=== PATIENT | male | born 1965 | race Caucasian/White ===

== ENCOUNTER 2018-05-26 06:48 | Observation (INO) | payer OTHER ==
[2018-05-26] MEDS ORDERED: NA CHLORIDE 0.9% 1,000 ML ONE (07:28)
[2018-05-26 07:34] LABS: Absolute Lymphocytes (CBC) 1.2 K/uL (0.7-4.9); Absolute Monocytes 0.6 K/uL (0.1-1.3); Absolute Neutrophil 4.2 K/uL (1.8-8.0); Basophils % 0.7 % (0-1.3); Eosinophils % 1.6 % (0-4.4); Hematocrit 44.1 % (39.6-49.0); Lymphocytes % 19.2 % (15.3-44.8); MPV 8.9 fL (7.6-11.3); Monocytes % 9.3 % (3.3-12.3); RBC Red Blood Cell Count 4.98 M/uL (4.33-5.43)
[2018-05-26] MEDS ORDERED: METOPROLOL TARTRATE 5 MG/5 ML INJ IV ONE ×3 (07:35→08:38)
[2018-05-26] MEDS ORDERED: LORazepam 2 MG/ML VIAL ONE (07:35)
[2018-05-26 07:40] LABS: Protime INR 1.11
[2018-05-26 08:01] LABS: ALT/SGPT 17 U/L (12-78); AST/SGOT 22 U/L (15-37); Albumin 3.9 g/dL (3.4-5.0); Alkaline Phosphatase 78 U/L (45-117); BUN Blood Urea Nitrogen 15 mg/dL (7-18); Bicarbonate 22 mmol/L (21-32); Bilirubin Direct 0.2 mg/dL (0-0.2); Bilirubin Total 0.5 mg/dL (0.2-1.0); Glucose Level 112 mg/dL (74-106); Magnesium 2.4 mg/dL (1.8-2.4); NT PRO-BNP 1958 pg/mL (<125); Potassium 4.1 mmol/L (3.5-5.1); Protein, Total 7.8 g/dL (6.4-8.2); Sodium Level 139 mmol/L (136-145); Troponin (Emerg Dept Use Only) < 0.02 ng/mL (0.0-0.045)
[2018-05-26] MEDS ORDERED: ENOXAPARIN 80 MG/0.8 ML SQ ONE (08:03)
--- NOTE | 2018-05-26 08:33 | ER ---
Nurse's Notes [facility] Department Name: Conrado Engel Age: 52 yrs Sex: Male : 1965 Arrival Date: 05/26/2018 Time: 06:49 Bed 5 Private MD: Diagnosis: Unspecified atrial fibrillation Presentation: 05/26 07:13 Presenting complaint: Patient states: Anxiety and SOB upon waking. Denies pain/nausea. hb Transition of care: patient was not received from another setting of care. Onset of symptoms was May 26, 2018. Risk Assessment: Do you want to hurt yourself or someone else? Patient reports no desire to harm self or others. Note HR 150s, Dr. Woodard notified and EKG ordered. Care prior to arrival: None. 07:13 Method Of Arrival: Ambulatory hb 07:13 Acuity: JACQUE 2 hb 07:15 Initial Sepsis Screen: Does the patient meet any 2 criteria? No. Patient's initial bp sepsis screen is negative. Does the patient have a suspected source of infection? No. Patient's initial sepsis screen is negative. Triage Assessment: 07:00 General: Appears in no apparent distress. comfortable, obese, Behavior is calm, bp cooperative, appropriate for age. Pain: Denies pain. Historical: - Allergies: 07:16 No Known Allergies; hb - Home Meds: 07:16 None [Active]; hb - PMHx: 07:16 Prolonged QT; hb - PSHx: 07:16 None; hb - Immunization history:: Adult Immunizations up to date. - Social history:: Smoking status: Patient/guardian denies using tobacco, Patient uses alcohol, occasionally. caffeine, Patient/guardian denies using street drugs, IV drugs, The patient lives with family. - Ebola Screening: : No symptoms or risks identified at this time. - Family history:: not pertinent. - Hospitalizations: : No recent hospitalization is reported. Screenin:16 Abuse screen: Denies threats or abuse. Denies injuries from another. Nutritional hb screening: No deficits noted. Tuberculosis screening: No symptoms or risk factors identified. Fall Risk None identified. Assessment: 07:15 General: Appears distressed, comfortable, obese, Behavior is cooperative, appropriate bp for age, anxious. Pain: Denies pain. Neuro: Level of Consciousness is awake, alert, obeys commands, Oriented to person, place, time, situation, Appropriate for age. Cardiovascular: Rhythm is atrial fibrillation with rapid ventricular response. Respiratory: Airway is patent Respiratory effort is even, unlabored, Respiratory pattern is regular, symmetrical. GI: No signs and/or symptoms were reported involving the gastrointestinal system. : No signs and/or symptoms were reported regarding the genitourinary system. EENT: No deficits noted. Derm: No deficits noted. Musculoskeletal: Circulation, motion, and sensation intact. Range of motion: intact in all extremities. 09:15 Reassessment: ADMIT IN PROCESS, VS STABLE ON MONITOR. bp Vital Signs: 07:15 BP 145 / 82; Pulse 153; Resp 16; Temp 97; Pulse Ox 98% on R/A; Pain 0/10; hb 09:22 BP 93 / 65; Pulse 102; Resp 20; Temp 98.6; Pulse Ox 96% ; lt1 ED Course: 06:49 Patient arrived in ED. ag3 07:09 Kang Ortega, RN is Primary Nurse. bp 07:15 Triage completed. hb 07:15 Arm band placed on. hb 07:15 Patient has correct armband on for positive identification. Placed in gown. Bed in low bp position. Call light in reach. Side rails up X2. Adult w/ patient. 07:16 Scooter Moreira MD is Attending Physician. ma2 07:20 Initial lab(s) drawn, by me. Inserted saline lock: 20 gauge in right antecubital area, jb1 using aseptic technique. Blood collected. 07:39 X-ray completed. Portable x-ray completed in exam room. Patient tolerated procedure kp1 well. 07:40 XRAY Chest (1 view) In Process Unspecified. EDMS 08:29 Stephen Dawkins DO is Hospitalizing Provider. ma2 10:25 No provider procedures requiring assistance completed. Patient admitted, IV remains in jl7 place. intact, No redness/swelling at site. Administered Medications: 07:21 Drug: NS 0.9% 1000 ml Route: IV; Rate: 1 bolus; Site: right antecubital; hb 09:50 Follow up: IV Status: Completed infusion; IV Intake: 1000ml bp 07:30 Drug: Ativan 1 mg Route: IVP; Site: right antecubital; bp 09:49 Follow up: Response: No adverse reaction; Marked relief of symptoms bp 07:30 Drug: Metoprolol 5 mg Route: IVP; Site: right antecubital; bp 07:40 Drug: Metoprolol 5 mg Route: IVP; Site: right antecubital; bp 09:50 Follow up: Response: Marked relief of symptoms bp 07:40 Drug: Lovenox 80 mg Route: Sub-Q; Site: right lower abdomen; bp 09:49 Follow up: Response: No adverse reaction bp Intake: 09:50 IV: 1000ml; Total: 1000ml. bp Outcome: 08:32 Decision to Hospitalize by Provider. ma2 10:25 Admitted to Tele accompanied by tech, via wheelchair, room 422, with chart, Report jl7 called to AMNA Willams 10:25 Condition: stable 10:25 Discharge instructions given to patient, family, Instructed on the need for admit, Demonstrated understanding of instructions. 10:38 Patient left the ED. bp Signatures: Dispatcher [employer] EDCalos Martinez jb1 Ela Stephens RN RN hb Leal, Jahala, RN RN jl7 Lexi Gonzalez kp1 Kang Ortega RN RN bp Alzahri, Mohammad, MD MD ma2 Kathy Weiss3 Hilaria Zarco [facility]
--- NOTE | 2018-05-26 08:33 | EDPHYS ---
Physician Documentation [facility] Name: Conrado Engel Age: 52 yrs Sex: Male : 1965 Arrival Date: 05/26/2018 Time: 06:49 Bed 5 Private MD: ED Physician Scooter Moreira HPI: 05/26 07:17 This 52 yrs old Male presents to ER via Ambulatory with complaints of Nervous.ma2 07:17 The patient presents with a history of heart racing. Onset: The symptoms/episode ma2 began/occurred suddenly, 3 hour(s) ago. Associated signs and symptoms: Pertinent positives: anxiety, Pertinent negatives: chest pain, cough, fever, lightheadedness, nausea, SOB, syncope, near-syncope, vertigo, vomiting. Severity of symptoms: At their worst the symptoms were mild in the emergency department the symptoms are unchanged. The patient has not experienced similar symptoms in the past. Historical: - Allergies: 07:16 No Known Allergies; hb - Home Meds: 07:16 None [Active]; hb - PMHx: 07:16 Prolonged QT; hb - PSHx: 07:16 None; hb - Immunization history:: Adult Immunizations up to date. - Social history:: Smoking status: Patient/guardian denies using tobacco, Patient uses alcohol, occasionally. caffeine, Patient/guardian denies using street drugs, IV drugs, The patient lives with family. - Ebola Screening: : No symptoms or risks identified at this time. - Family history:: not pertinent. - Hospitalizations: : No recent hospitalization is reported. ROS: 07:17 Constitutional: Negative for fever, chills, and weight loss. ma2 07:17 Cardiovascular: Positive for palpitations, Negative for chest pain, edema, orthopnea, paroxysmal nocturnal dyspnea, acute changes. 07:17 Respiratory: Positive for palpitation, Negative for cough, dyspnea on exertion, hemoptysis, orthopnea, pleurisy, shortness of breath, sputum production, wheezing, acute changes. 07:17 All other systems are negative. Exam: 07:17 Constitutional: This is a well developed, well nourished patient who is awake, alert, ma2 and in no acute distress. Chest/axilla: Normal chest wall appearance and motion. Nontender with no deformity. No lesions are appreciated. Respiratory: Lungs have equal breath sounds bilaterally, clear to auscultation and percussion. No rales, rhonchi or wheezes noted. No increased work of breathing, no retractions or nasal flaring. Abdomen/GI: Soft, non-tender, with normal bowel sounds. No distension or tympany. No guarding or rebound. No evidence of tenderness throughout. MS/ Extremity: Pulses equal, no cyanosis. Neurovascular intact. Full, normal range of motion. Neuro: Awake and alert, GCS 15, oriented to person, place, time, and situation. Cranial nerves II-XII grossly intact. Motor strength 5/5 in all extremities. Sensory grossly intact. Cerebellar exam normal. Normal gait. 07:17 Cardiovascular: Rate: tachycardic, Rhythm: irregularly irregular, Pulses: Edema: is not appreciated, JVD: is not appreciated. Vital Signs: 07:15 BP 145 / 82; Pulse 153; Resp 16; Temp 97; Pulse Ox 98% on R/A; Pain 0/10; hb 09:22 BP 93 / 65; Pulse 102; Resp 20; Temp 98.6; Pulse Ox 96% ; lt1 MDM: 07:16 Patient medically screened. ma2 07:17 Differential diagnosis: arrythmia, dehydration, stress disorder. ma2 08:28 Data reviewed: vital signs, nurses notes. Data interpreted: HR improved to 110 w metop ma2 . Counseling: I had a detailed discussion with the patient and/or guardian regarding: the historical points, exam findings, and any diagnostic results supporting the discharge/admit diagnosis, the presence of at least one elevated blood pressure reading (>120/80) during this emergency department visit. Response to treatment: the patient's symptoms have markedly improved after treatment. ED course: will admit to obs for a-fib w rvr . 08:52 ED course: discussed with dr. wu . ct2 05/26 07:17 Order name: Basic Metabolic Panel; Complete Time: 08:08 [facility] 05/26 07:17 Order name: CBC with Diff; Complete Time: 08:08 [facility] 05/26 07:17 Order name: LFT's; Complete Time: 08:08 [facility] 05/26 07:17 Order name: Magnesium; Complete Time: 08:08 [facility] 05/26 07:17 Order name: NT PRO-BNP; Complete Time: 08:08 [facility] 05/26 07:17 Order name: PT-INR; Complete Time: 08:08 2 05/26 07:17 Order name: Troponin (emerg Dept Use Only); Complete Time: 08:08 2 05/26 07:17 Order name: XRAY Chest (1 view) ct2 05/26 07:17 Order name: EKG; Complete Time: 07:18 ma2 05/26 07:51 Order name: EKG Electrocardiogram [facility] 05/26 07:17 Order name: Cardiac monitoring; Complete Time: 07:21 ma2 05/26 07:17 Order name: EKG - Nurse/Tech; Complete Time: 07:21 ma2 05/26 07:17 Order name: IV Saline Lock; Complete Time: 07:21 05/26 07:17 Order name: Labs collected and sent; Complete Time: 09:23 2 05/26 07:17 Order name: O2 Per Protocol; Complete Time: 07:21 2 05/26 07:17 Order name: O2 Sat Monitoring; Complete Time: 07:21 2 05/26 07:17 Order name: Oxygen Per Protocol; Complete Time: 07:21 ma2 Administered Medications: 07:21 Drug: NS 0.9% 1000 ml Route: IV; Rate: 1 bolus; Site: right antecubital; hb 09:50 Follow up: IV Status: Completed infusion; IV Intake: 1000ml bp 07:30 Drug: Ativan 1 mg Route: IVP; Site: right antecubital; bp 09:49 Follow up: Response: No adverse reaction; Marked relief of symptoms bp 07:30 Drug: Metoprolol 5 mg Route: IVP; Site: right antecubital; bp 07:40 Drug: Metoprolol 5 mg Route: IVP; Site: right antecubital; bp 09:50 Follow up: Response: Marked relief of symptoms bp 07:40 Drug: Lovenox 80 mg Route: Sub-Q; Site: right lower abdomen; bp 09:49 Follow up: Response: No adverse reaction bp Disposition: 05/26/18 08:32 Hospitalization ordered by Stephen Wu for Observation. Preliminary diagnosis is Unspecified atrial fibrillation. - Bed requested for Telemetry/MedSurg (observation). - Status is Observation. bp - Condition is Stable. - Problem is new. - Symptoms have improved. UTI on Admission? No Signatures: Dispatcher [employer] EDMS Allie Smith Ela Pandya, RN RN Kang Adame, AMNA RN bp Scooter Moreira MD MD ma2 Corrections: (The following items were deleted from the chart) 09:41 08:32 Hospitalization Ordered by Stephen Wu DO for Observation. Preliminary bd diagnosis is Unspecified atrial fibrillation. Bed requested for Telemetry/MedSurg (observation). Status is Observation. Condition is Stable. Problem is new. Symptoms have improved. UTI on Admission? No. ma2 10:38 09:41 05/26/2018 08:32 Hospitalization Ordered by [facility] for Observation. bp Preliminary diagnosis is Unspecified atrial fibrillation. Bed requested for Telemetry/MedSurg (observation). Status is Observation. Condition is Stable. Problem is new. Symptoms have improved. UTI on Admission? No. bd
--- NOTE | 2018-05-26 08:58 | EKG ---
Test Date: 2018-05-26 Test Time: 07:18:39 Agriculture Mechanic: HB MEASUREMENT RESULTS: Intervals: Rate: 139 HI: QRSD: 90 QT: 290 QTc: 441 [place]: P: HI: QRS: 10 T: 194 INTERPRETIVE STATEMENTS: Atrial fibrillation with rapid ventricular response Moderate voltage criteria for LVH, may be normal variant ST & T wave abnormality, consider inferior ischemia ST & T wave abnormality, consider anterolateral ischemia Abnormal ECG No previous ECG available for comparison Electronically Signed On 05-26-18 08:57:44 CERTIFIED RECREATIONAL THERAPIST by Wilton Montilla
--- NOTE | 2018-05-26 08:58 | EKG ---
Test Date: 2018-05-26 Test Time: 07:19:37 Health Promoter: HB MEASUREMENT RESULTS: Intervals: Rate: 144 MT: QRSD: 90 QT: 248 QTc: 383 [place]: P: MT: QRS: 12 T: 205 INTERPRETIVE STATEMENTS: Atrial fibrillation with rapid ventricular response Moderate voltage criteria for LVH, may be normal variant ST & T wave abnormality, consider inferior ischemia ST & T wave abnormality, consider anterolateral ischemia Abnormal ECG Compared to ECG 05/26/2018 07:18:39 No significant changes Electronically Signed On 05-26-18 08:57:42 FIBERGLASS BONDING MACHINE TENDER by Wilton Montilla
--- NOTE | 2018-05-26 09:38 | P.HP ---
Certification for Inpatient Patient admitted to: Observation Patient will require the following post-hospital care: None Practitioner: I am a practitioner with admitting privileges, knowledge of patient current condition, hospital course, and medical plan of care. Services: Services provided to patient in accordance with Admission requirements found in Title 42 Section 412.3 of the Code of Federal Regulations Patient History Date of Service: 05/26/18 Primary Care Provider: Dr. Georgina Alexander; Cardiology-Dr. Montilla Reason for admission: Palpitations History of Present Illness: 52-year-old male presented to the emergency room with palpitations. Patient reported palpitations late last night. He has not had any palpitations before. He denied any significant chest pain or shortness of breath. Mild edema noted to the lower extremities. Patient reports no prior medical problems. Patient came to the ER for further evaluation. Patient seen in the emergency room. Patient found to be in new onset atrial fibrillation with RVR. Rate was around 150. Patient was given 2 doses of IV metoprolol with improvement of heart rate. On lab white count 6.0, hemoglobin 15. Troponin less than 0.02 with a BNP of 1900. Sodium 139, potassium 4.1, BUN of 15, creatinine 1.2 with GFR 63. Glucose 112. Patient stable at this time. Patient was admitted for further evaluation and treatment. In the ER patient stable. Patient reports family history of heart disease. He denies any major medical problems at this time. It is been over 20 years since he last saw cardiology. Home medications list reviewed: Yes - Past Medical/Surgical History Diabetic: No -: Obesity -: Tonsillectomy Psychosocial/ Personal History: Patient is . He has 3 children. 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 - Family History Mother -: Heart disease - Social History Smoking Status: Never smoker Alcohol use: Yes CD- Drugs: No Caffeine use: Yes Place of Residence: Home Review of Systems General: As per HPI Eyes: Unremarkable ENT: Unremarkable Respiratory: Unremarkable Cardiovascular: Palpitations, As per HPI Gastrointestinal: Unremarkable Genitourinary: Unremarkable Musculoskeletal: Pedal edema, As per HPI Integumentary: Unremarkable Neurological: Unremarkable Lymphatics: Unremarkable Physical Examination - Physical Exam General: Alert, In no apparent distress, Oriented x3, Cooperative HEENT: Atraumatic, Normocephalic, PERRLA, Mucous membr. moist/pink Neck: Supple, No Thyromegaly Respiratory: Clear to auscultation bilaterally, Normal air movement Cardiovascular: Irregular heart rate/rhythm (Atrial fibrillation, rate improved) Gastrointestinal: Normal bowel sounds, Soft and benign, Non-distended, No tenderness, No masses, No rebound, No guarding Musculoskeletal: No erythema, No tenderness, No warmth Integumentary: No erythema, No warmth, No cyanosis, Tenderness/swelling (Mild pitting edema to the lower extremities bilateral) Neurological: Normal speech, Normal strength at 5/5 x4 extr, Normal tone, Normal affect - Studies Laboratory Data (last 24 hrs) 05/26/18 07:20: PT 13.1 H, INR 1.11 05/26/18 07:20: WBC 6.0, Hgb 15.1, Hct 44.1, Plt Count 290 05/26/18 07:20: Sodium 139, Potassium 4.1, BUN 15, Creatinine 1.21, Glucose 112 H, Magnesium 2.4, Total Bilirubin 0.5, AST 22, ALT 17, Alkaline Phosphatase 78 Assessment and Plan - Plan Impression: New onset atrial fibrillation with RVR with possible underlying systolic congestive heart failure Obesity Plan: New onset atrial fibrillation with RVR with possible underlying systolic congestive heart failure: Patient will be admitted and monitored on telemetry. Will monitor cardiac enzymes. Will obtain echocardiogram to evaluate for possible underlying congestive heart failure. Cardiology consulted to further evaluate. Patient given IV metoprolol in the emergency room. Rate improved. Will continue with metoprolol orally. Will start Lovenox at 1 milligram/ kilograms subcu twice daily. Awaiting for further recommendations from cardiology. Patient may require cardiac intervention. Will check tsh and free T4. Patient likely has underlying obstructive sleep apnea. This can be evaluated as an outpatient. Obesity: Will evaluate BMI. Will address lifestyle modification education. Discharge Plan: Home Plan to discharge in: 48 Hours - Advance Directives Does patient have a Living Will: No Does patient have a Durable POA for Healthcare: No - Code Status/Comfort Care Code Status Assessed: Yes (Patient full code.) Time Spent Managing Pts Care (In Minutes): 55
--- NOTE | 2018-05-26 09:59 | RAD REPORT ---
EXAM DESCRIPTION: Dede Single View05/26/2018 7:41 am CLINICAL HISTORY: Shortness of breath COMPARISON: none FINDINGS: The lungs appear clear of acute infiltrate. The heart is borderline enlarged. Mild promin ence of mediastinum. IMPRESSION: Mild prominence of mediastinum may be secondary to tortuous brachiocephalic vessels are mediastinal fat. Lymphadenopathy can also have this appearance but probably is less likely. PA and l ateral chest series in 1 month is recommended for re-evaluation
[2018-05-26 10:53] VITALS: BMI 33.5
[2018-05-26] MEDS ORDERED: ONDANSETRON 4 MG/2 ML VIAL IV PRN (10:54)
[2018-05-26] MEDS ORDERED: ACETAMINOPHEN 500 MG TAB PO PRN (10:54)
[2018-05-26 12:32] LABS: Thyroid Stimulating Hormone 3.93 uIU/mL (0.360-3.740)
[2018-05-26 13:41] LABS: CKMB Creatine Kinase MB 6.5 ng/mL (0.3-3.6); Troponin I 0.02 ng/mL (0.0-0.045)
--- NOTE | 2018-05-26 15:52 | ECHO ---
HEIGHT: 5 ft 11 in WEIGHT: 240 lb 0 oz DATE OF STUDY: 05/26/[address]: Stephen Dawkins DO 2-DIMENSIONAL: YES M.MODE: YES DOPPLER: YES COLOR FLOW: YES TDS: NO PORTABLE: NO DEFINITY: NO BUBBLE STUDY: NO DIAGNOSIS: NEW ONSET ATRIAL FIBRILLATION CARDIAC HISTORY: CATHERIZATION: NO SURGERY: NO PROSTHETIC VALVE: NO PACEMAKER: NO MEASUREMENTS (cm) DIASTOLIC (NORMALS) SYSTOLIC (NORMALS) IVSd 1.5 (0.6-1.2) LA Diam 5.7 (1.9-4.0) LVEF 55% LVIDd 4.2 (3.5-5.7) LVIDs 3.0 (2.0-3.5) %FS 28% LVPWd 1.5 (0.6-1.2) Ao Diam 3.0 (2.0-3.7) 2 DIMENSIONAL ASSESSMENT: RIGHT ATRIUM: NORMAL LEFT ATRIUM: DILATED RIGHT VENTRICLE: NORMAL LEFT VENTRICLE: LEFT VENTRICULAR HYPERTROPHY TRICUSPID VALVE: NORMAL MITRAL VALVE: NORMAL PULMONIC VALVE: NORMAL AORTIC VALVE: NORMAL PERICARDIAL EFFUSION: NONE AORTIC ROOT: NORMAL LEFT VENTRICULAR WALL MOTION: NORMAL DOPPLER/COLOR FLOW: NORMAL COMMENTS: NORMAL LEFT VENTRICULAR FUNCTION. ATRIAL FIBRILLATION. LEFT ATRIAL ENLARGEMENT. NO THROMBUS. LEFT VENTRICULAR HYPERTROPHY. TECHNOLOGIST: MAGED TAM RDCS
[2018-05-26 17:27] LABS: Urine Appearance CLEAR; Urine Bilirubin NEGATIVE (NEG); Urine Blood NEGATIVE (NEG); Urine Color YELLOW; Urine Glucose NEGATIVE (NEG); Urine Protein NEGATIVE (NEG); Urine Specific Gravity 1.015 (1.005-1.030); Urine Urobilinogen 0.2 mg/dL (0.2-1.0)
[2018-05-26 17:28] LABS: Urine Microscopic Reflex NO UMIC
[2018-05-26] MEDS: METOPROLOL TAR 25 MG TAB PO SCH (17:37)
--- NOTE | 2018-05-26 19:25 | CON ---
Date of Consultation: 05/26/2018 Reason For Admission: New-onset atrial fibrillation. History Of Present Illness: Mr. Engel is a 52-year-old white male, who apparently had an episode of syncope when he was 16 years of age and he was told then he has a long QT syndrome and also told t anne-marie that he had left ventricular hypertrophy. Has not had any problems obviously since then. He is 52, so 36 years later, he developed atrial fibrillation. He had some chest pain with the atrial fibr illation and he felt more anxious with it. Denies nausea, vomiting, diaphoresis, PND, orthopnea, ped al edema, or syncope. Past Medical History: Negative. Allergies: NONE. Review of Systems: Negative. Social History: Negative for tobacco, alcohol, or drugs. Medications: None. Physical Examination: Vital Signs: He was still in atrial fibrillation rate of about 90, afebrile. HEENT: Negative. Neck: Supple with no bruit. Chest: Clear. Cardiac: Revealed atrial fibrillation. No murmurs, gallops, or rubs. Abdomen: Benign. Extremities: Revealed no clubbing, cyanosis, or edema. Diagnostic Data: EKG showed atrial fibrillation. BNP was 1958. Rest of it was normal. Impression And Plan: New-onset atrial fibrillation. The patient received metoprolol. He is on Love nox. His rate is better controlled. We will continue the metoprolol. He presents as a rather chall enging case because he has a history of long QT. He will not be eligible for Betapace or amiodarone. Certainly beta-blockers and anticoagulants and maybe a cardioversion in the near future may be may be the way to go. We can certainly consider other antiarrhythmics as well or even ablation. We do n ot have an EKG that shows his long QT just Nor[place], but based on history. An echocardiogram is pendi ng. We will see how he does by tomorrow. KELLE/BHAVIN Voice ID: [id number] Report ID: [id number]
[2018-05-26] MEDS: Enoxaparin 120 MG/0.8 ML SYR SQ SCH (21:10)
[2018-05-26 22:34] LABS: CKMB Creatine Kinase MB 5.8 ng/mL (0.3-3.6); Troponin I 0.02 ng/mL (0.0-0.045)
[2018-05-27] MEDS: METOPROLOL TAR 25 MG TAB PO SCH (05:52)
[2018-05-27 06:10] LABS: Absolute Lymphocytes (CBC) 1.7 K/uL (0.7-4.9); Absolute Monocytes 0.7 K/uL (0.1-1.3); Absolute Neutrophil 3.9 K/uL (1.8-8.0); Basophils % 0.8 % (0-1.3); Eosinophils % 1.6 % (0-4.4); Hematocrit 42.6 % (39.6-49.0); Lymphocytes % 26.1 % (15.3-44.8); MPV 8.4 fL (7.6-11.3); Monocytes % 10.6 % (3.3-12.3); RBC Red Blood Cell Count 4.75 M/uL (4.33-5.43)
[2018-05-27] MEDS ORDERED: PANTOPRAZOLE 40MG TABLET PO SCH (06:30)
[2018-05-27 06:33] LABS: Magnesium 2.4 mg/dL (1.8-2.4); Potassium 4.5 mmol/L (3.5-5.1)
[2018-05-27 08:53] VITALS: BP 104/65; TEMP 97
--- NOTE | 2018-05-27 08:56 | RAD REPORT ---
EXAM DESCRIPTION: RAD - Chest Pa And Lat (2 Views) - 05/27/2018 6:34 am CLINICAL HISTORY: follow up SOB Chest pain. COMPARISON: Chest Single View dated 05/26/2018 FINDINGS: The lungs are clear. The heart is normal in size. No displaced fractures. IMPRESSION: No acute or concerning finding suspected.
[2018-05-27] MEDS ORDERED: FUROSEMIDE 20 MG TABLET PO SCH (09:00)
[2018-05-27] MEDS: Enoxaparin 120 MG/0.8 ML SYR SQ SCH (09:15)
--- NOTE | 2018-05-27 10:24 | P.DS ---
Admission Date: 05/26/18 Discharge Date: 05/27/18 Primary Care Provider: Dr. Georgina Alexander; Cardiology-Dr. Montilla Disposition: ROUTINE DISCHARGE Discharge Condition: GOOD Reason for Admission: Palpitations Consultations: Cardiology-Dr. Montilla Procedures: ECHO: EF 55% LEFT VENTRICULAR WALL MOTION: NORMAL DOPPLER/COLOR FLOW: NORMAL COMMENTS: NORMAL LEFT VENTRICULAR FUNCTION. ATRIAL FIBRILLATION. LEFT ATRIAL ENLARGEMENT. NO THROMBUS. LEFT VENTRICULAR HYPERTROPHY. CXR: COMPARISON: Chest Single View dated 05/26/2018 FINDINGS: The lungs are clear. The heart is normal in size. No displaced fractures. IMPRESSION: No acute or concerning finding suspected. Medical Problem List: New onset atrial fibrillation with RVR with history of prolonged QT syndrome with echo showing left ventricular hypertrophy and left atrial enlargement Hyperlipidemia Obesity, BMI 33.5 Brief History of Present Illness: 52-year-old male presented to the emergency room with palpitations. Patient reported palpitations late last night. He has not had any palpitations before. He denied any significant chest pain or shortness of breath. Mild edema noted to the lower extremities. Patient reports no prior medical problems. Patient came to the ER for further evaluation. Patient seen in the emergency room. Patient found to be in new onset atrial fibrillation with RVR. Rate was around 150. Patient was given 2 doses of IV metoprolol with improvement of heart rate. On lab white count 6.0, hemoglobin 15. Troponin less than 0.02 with a BNP of 1900. Sodium 139, potassium 4.1, BUN of 15, creatinine 1.2 with GFR 63. Glucose 112. Patient stable at this time. Patient was admitted for further evaluation and treatment. In the ER patient stable. Patient reports family history of heart disease. He denies any major medical problems at this time. Patient with history of prolonged QT. It is been over 20 years since he last saw cardiology. Hospital Course: Patient presented with palpitations secondary to new onset atrial fibrillation with RVR. Patient was admitted for treatment. Patient given beta-tulio therapy. Heart rate improved. Patient still in atrial fibrillation. Patient seen and evaluated by Cardiology. Patient with history of prolonged QT syndrome. Patient not a candidate for amiodarone or sotalol. Patient remained stable at discharge. Echocardiogram shows ejection fraction of 55% with normal left ventricular function, left atrial enlargement and left ventricular hypertrophy. At discharge cardiology recommends to continue with metoprolol 12.5 mg 1 pill twice daily for rate control. Patient may need to hold medication if systolic blood pressure less than 100. Patient to follow up with cardiology within 1 week. Cardiology will consider other options if the patient remains in atrial fibrillation. Options include medication-Rythmol or cardioversion. This to be further addressed as an outpatient. At discharge cardiology also recommends chronic anti coagulation therapy due to the atrial fibrillation. At discharge he will continue with Eliquis 5 mg twice daily. Education on Eliquis and atrial fibrillation will be provided. Patient found to have hyperlipidemia with noted elevated LDL. At discharge he will continue with Lipitor 40 mg daily. Patient with obesity, BMI 33.5. Lifestyle modification education will be provided. Vital Signs/Physical Exam: Temp Pulse Resp BP Pulse Ox 97.0 F 69 18 104/65 96 05/27/18 08:00 05/27/18 08:00 05/27/18 08:00 05/27/18 08:00 05/27/18 08:00 General: Alert, In no apparent distress, Oriented x3, Cooperative HEENT: Atraumatic, Mucous membr. moist/pink Neck: Supple Respiratory: Clear to auscultation bilaterally, Normal air movement Cardiovascular: Irregular heart rate/rhythm (Atrial fibrillation, rate controlled) Gastrointestinal: Normal bowel sounds, Soft and benign, Non-distended, No ascites, No tenderness, No masses, No rebound, No guarding Musculoskeletal: No erythema, No tenderness, No warmth Integumentary: No tenderness/swelling, No erythema, No warmth, No cyanosis Neurological: Normal speech, Normal strength at 5/5 x4 extr, Normal tone, Normal affect Laboratory Data at Discharge: WBC 6.4 K/uL (4.3-10.9) 05/27/18 05:50 Hgb 14.5 g/dL (13.6-17.9) 05/27/18 05:50 Hct 42.6 % (39.6-49.0) 05/27/18 05:50 Plt Count 276 K/uL (152-406) 05/27/18 05:50 PT 13.1 SECONDS (9.5-12.5) H 05/26/18 07:20 INR 1.11 05/26/18 07:20 Sodium 141 mmol/L (136-145) 05/27/18 05:50 Potassium 4.5 mmol/L (3.5-5.1) 05/27/18 05:50 BUN 17 mg/dL (7-18) 05/27/18 05:50 Creatinine 1.32 mg/dL (0.55-1.3) H 05/27/18 05:50 Glucose 104 mg/dL (74-106) 05/27/18 05:50 Magnesium 2.4 mg/dL (1.8-2.4) 05/27/18 05:50 Total Bilirubin 0.5 mg/dL (0.2-1.0) 05/26/18 07:20 AST 22 U/L (15-37) 05/26/18 07:20 ALT 17 U/L (12-78) 05/26/18 07:20 Alkaline Phosphatase 78 U/L (45-117) 05/26/18 07:20 Troponin I 0.02 ng/mL (0.0-0.045) 05/26/18 21:53 Triglycerides 105 mg/dL (<150) 05/27/18 05:50 Cholesterol 209 mg/dL (<200) H 05/27/18 05:50 HDL Cholesterol 38 mg/dL (40-60) L 05/27/18 05:50 Cholesterol/HDL Ratio 5.50 05/27/18 05:50 Home Medications: Apixaban [Eliquis] 5 mg PO BID #60 tablet 05/27/18 Atorvastatin Calcium [Lipitor] 40 mg PO DAILY #30 tablet 05/27/18 Metoprolol Tartrate [Lopressor*] 12.5 mg PO BID #60 tab 05/27/18 New Medications: Apixaban [Eliquis] 5 mg PO BID #60 tablet Atorvastatin Calcium [Lipitor] 40 mg PO DAILY #30 tablet Metoprolol Tartrate [Lopressor*] 12.5 mg PO BID #60 tab Patient Discharge Instructions: 1. Patient will need to follow up with his PCP and cardiology within 1 week to follow up this hospitalization. 2. Patient presented with palpitations secondary to new onset atrial fibrillation with RVR. Patient was admitted for treatment. Patient given beta-tulio therapy. Heart rate improved, but Patient still in atrial fibrillation. Patient seen and evaluated by Cardiology. Patient with history of prolonged QT syndrome. Patient not a candidate for amiodarone or sotalol. Patient remained stable at discharge. Echocardiogram shows ejection fraction of 55% with normal left ventricular function, left atrial enlargement and left ventricular hypertrophy. At discharge cardiology recommends to continue with metoprolol 12.5 mg 1 pill twice daily for rate control. Patient may need to hold medication if systolic blood pressure less than 100. Patient to follow up with cardiology within 1 week. Cardiology will consider other options if the patient remains in atrial fibrillation. Options include medication-Rythmol or cardioversion. This to be further addressed as an outpatient. At discharge cardiology also recommends chronic anti coagulation therapy due to the atrial fibrillation. At discharge he will continue with Eliquis 5 mg twice daily. Education on Eliquis and atrial fibrillation will be provided. 3. Patient found to have hyperlipidemia with noted elevated LDL. At discharge he will continue with Lipitor 40 mg daily. 4. Patient with obesity, BMI 33.5. Lifestyle modification education will be provided. Diet: AHA Activity: Ad vincenzo Time spent managing pt's care (in minutes): 55
[2018-05-27 13:38] VITALS: O2SAT 96
[2018-05-27] MEDS ORDERED: METOPROLOL TAR 25 MG TAB PO SCH (18:00)
[2018-05-27] MEDS ORDERED: APIXABAN 5 MG TABLET PO SCH (21:00)
== END 2018-05-27 11:17 | disposition home or self-care (01) ==
LOC: ER 06:48 → ERHOLD 09:28 → 4TH 10:25
PROVIDERS: ADMIT Family Medicine; ATTEND Family Medicine
DX: I48.91 Unspecified atrial fibrillation (principal); E78.5 Hyperlipidemia, unspecified; E66.9 Obesity, unspecified; Z68.33 Body mass index [BMI] 33.0-33.9, adult; I51.7 Cardiomegaly
CPT/HCPCS: 36415; 71045; 71046; 80048; 80061; 80076; 81003; 82550; 82553; 83735; 83880; 84439; 84443; 84484; 85025; 85610; 93005; 93306; 96361; 96372; 96374; 96375; 99285; G0378; J1650; J7030

== ENCOUNTER 2018-08-01 08:55 | Observation (INO) | payer BC, OTHER ==
[2018-08-01] MEDS ORDERED: SOTALOL HCL 80 MG TAB PO ONE (09:47)
[2018-08-01 10:37] LABS: Absolute Monocytes 0.7 K/uL (0.1-1.3); Absolute Neutrophil 5.8 K/uL (1.8-8.0); Basophils % 0.7 % (0-1.3); Eosinophils % 0.6 % (0-4.4); Hematocrit 42.6 % (39.6-49.0); MPV 8.6 fL (7.6-11.3); Monocytes % 9.2 % (3.3-12.3); RBC Red Blood Cell Count 4.67 M/uL (4.33-5.43)
[2018-08-01 10:48] LABS: Potassium 4.8 mmol/L (3.5-5.1)
[2018-08-01] MEDS ORDERED: NA CHLORIDE 0.9% 500 ML ONE (13:54)
[2018-08-01] MEDS ORDERED: MIDAZOLAM HCL 5 MG/5 ML INJ ONE ×2 (14:07→14:11)
[2018-08-01] MEDS: SOTALOL HCL 80 MG TAB PO SCH (17:31)
[2018-08-01 18:16] VITALS: BMI 33.5
[2018-08-01] MEDS: APIXABAN 5 MG TABLET PO SCH (20:23)
[2018-08-01] MEDS ORDERED: ZOLPIDEM TARTRATE 5 MG TABLET PO ONE (21:35)
--- NOTE | 2018-08-01 21:38 | CON ---
Chief Complaint: Heart racing. History Of Present Illness: Mr. Engel has been having atrial fibrillation and atrial flutter off and on since April. He was placed on Betapace, was in sinus rhythm in mid May of this year, remained on Betapace, and then returned today. He is in atrial flutter. He has remained on metoprolol 100 mg a day and Eliquis since April. He has no history of atrial fibrillation before that. He had syncope when he was 16. The physician told him he had long QT syndrome, but his QT is not long. He does not have any history consistent with long QT syndrome. The patient uses no tobacco. His only medications have been metoprolol and Eliquis. Physical Examination: General: He appears to be his stated age of 52. Alert, oriented, pleasant, obese. Neck: No carotid bruit. Lungs: Clear. Heart: Regular rate and rhythm, going about 148. Abdomen: Soft. Extremities: Trace edema. Distal pulses normal. Social History: Uses no tobacco. Rare alcohol. No illegal drugs. Diagnostic Studies: His EKG shows atrial flutter, 2:1 conduction. Impression: The patient should be tried on sotalol. We will watch QT interval carefully. He will be in the hospital. So, if he does get a prolonged QT syndrome and torsades, we will be ready to deal with that. We should do a cardioversion this afternoon. YUDITH Voice ID: [id number] Report ID: [id number] ALEKSANDR
--- NOTE | 2018-08-01 23:35 | OP ---
Surgeon: Al Quintanilla MD Procedure: Direct current cardioversion. Indication: Atrial flutter, heart rate 140. Procedure In Detail: The patient was fasting. He had been on Eliquis since April 2018, 5 mg twic e a day, therapeutic dose. Brought to the cardiac catheterization lab in a fasting, sedated with Rizwan sed, titrated to an adequate level of sedation; 10 mg was used. A single shock was delivered through anterior-posterior paddles, synchronized the QRS complex 70 joules. This resulted in sinus rhythm. Complications from the procedure were none. He will stay overnight to be monitored for the first 3 doses of Betapace and be discharged home tomorrow if there is no proarrhythmia. DARWIN/BHAVIN Voice ID: [id number] Report ID: [id number]
[2018-08-02 01:58] VITALS: TEMP 97.1
[2018-08-02 04:28] LABS: Albumin 3.5 g/dL (3.4-5.0); Bilirubin Direct 0.2 mg/dL (0-0.2); Bilirubin Total 0.7 mg/dL (0.2-1.0); Protein, Total 6.3 g/dL (6.4-8.2)
[2018-08-02] MEDS: SOTALOL HCL 80 MG TAB PO SCH (05:06)
[2018-08-02] MEDS: APIXABAN 5 MG TABLET PO SCH (08:25)
[2018-08-02 09:14] VITALS: O2SAT 96
[2018-08-02 09:40] VITALS: BP 132/87
--- NOTE | 2018-08-02 22:31 | DS ---
Date of Discharge: 08/02/2018 Reason For Admission: Atrial flutter. Discharge Diagnoses: 1.Atrial flutter, status post cardioversion by Dr. Quintanilla yesterday, converted to normal rhythm. Th e patient now is on Betapace 80 mg b.i.d. and Xarelto. 2.Hypertension. 3.Left ventricular hypertrophy. 4.Prolonged QT. 5.Possible sleep apnea. Procedures: While he was in the hospital include direct current cardioversion on 08/01/2018 from atr ial flutter to normal rhythm. Discharge Instructions: Discharge instruction was for him to see me in 8 days at 8:30 in the morning in the office. To continue his medications at home except for instead of the metoprolol, he will be taking Betapace 80 mg b.i.d. Continue his other medications including Xarelto. Discharge diet inst ruction was for low-salt diet. Discharge physical activities were normal physical activities. Hospital Course: Mr. Engel is a 52-year-old white male with recent-onset atrial fibrillation that is paroxysmal, had plan to do a cardioversion approximately a month ago, but he converted to sinus r hythm on medications of metoprolol and Xarelto. However, he came to the office on 08/01/2018, not fe eling well, bloated, fatigued, short of breath, was found to be in atrial flutter with 2:1 AV block a t a rate of 150. He was sent from my office for a direct admission. Dr. Quintanilla performed a cardiove rsion on him. He went in normal rhythm. We switched him from metoprolol to Betapace 80 mg b.i.d. H wild has already received 3 dosages of Betapace, maintains sinus rhythm, asymptomatic. He was ready to go home, and he will be discharged today. Lipid profile, which was done, showed much improved lipid numbers. The patient requested a sleep study, which I will do as an outpatient. Liver function enzy mes were pending. Past Medical History: As stated above. Allergies: NONE. Review of Systems: Negative. Social History: Negative. Family History: Negative. Physical Examination: Vital Signs: Stable today. He was in sinus rhythm. HEENT: Negative. Neck: Supple with no bruit. Chest: Clear. Cardiac: Reveals regular rhythm and rate. No murmurs, gallops, or rubs. Abdomen: Benign. Extremities: Revealed no clubbing, cyanosis, or edema. Diagnostic Data: All within normal limits except for the EKG showing nonspecific ST-T wave changes. Final Diagnoses: 1.Atrial flutter, status post cardioversion. Continue Betapace and Xarelto. 2.Hypertension, well controlled. 3.Prolonged QT, resolved. 4.Left ventricular hypertrophy. 5.Possible sleep apnea. KELLE/MODL Voice ID: [id number] Report ID: [id number]
--- NOTE | 2018-08-03 06:07 | EKG ---
Test Date: 2018-08-02 Test Time: 08:03:33 [employer]: TANVIR MEASUREMENT RESULTS: Intervals: Rate: 81 NC: 156 QRSD: 96 QT: 414 QTc: 480 [place]: P: 63 NC: 156 QRS: 48 T: 154 INTERPRETIVE STATEMENTS: Normal sinus rhythm Biatrial enlargement RSR' or QR pattern in V1 suggests right ventricular conduction delay Possible Inferior infarct, age undetermined ST & T wave abnormality, consider anterolateral ischemia Abnormal ECG Compared to ECG 08/01/2018 14:10:27 RSR' in V1 or V2 now present Myocardial infarct finding now present ST (T wave) deviation now present Possible ischemia now present Incomplete right bundle-branch block no longer present Left ventricular hypertrophy no longer present Electronically Signed On 08-03-18 06:04:39 [employer]UFACTUR[employer] REPRESENTATIVE by Wilton Montilla
== END 2018-08-02 11:26 | disposition home or self-care (01) ==
LOC: INTOOBSV 09:14 → 4TH 09:14
PROC: 5A2204Z Restoration of Cardiac Rhythm, Single (ICD-10-PCS; principal; 2018-08-01)
DX: I48.92 Unspecified atrial flutter (principal); I10 Essential (primary) hypertension; I51.7 Cardiomegaly; E66.9 Obesity, unspecified; Z68.33 Body mass index [BMI] 33.0-33.9, adult
CPT/HCPCS: 36415; 80048; 80061; 80076; 83735; 85025; 92960; 93005; G0378; J2250